=== PATIENT | male | born 1995 | race Hispanic/Latino ===

== ENCOUNTER 2022-09-05 12:59 | Emergency (ER) | payer OTHER ==
[~2022-09-05] VITALS: Ht 172.7 cm; Wt 113.9 kg
[2022-09-05 14:00] LABS: BASOPHILS % (AUTO) 0.4 % (0.0-5.0); EOSINOPHILS % (AUTO) 2.4 % (0.0-8.0); HEMATOCRIT 49.5 % (42-54); LYMPHOCYTES % (AUTO) 35.1 % (21.0-51.0); MEAN CORPUSCULAR HEMOGLOBIN 28.9 pg (27.0-33.0); MEAN CORPUSCULAR HGB CONC 33.7 g/dL (32.0-36.0); MEAN CORPUSCULAR VOLUME 85.6 fL (79-99); MONOCYTES % (AUTO) 6.8 % (3.0-13.0); NEUTROPHILS % (AUTO) 55.2 % (40.0-77.0); PLATELET COUNT (AUTO) 186 K/uL (130-400); RED BLOOD CELL COUNT(AUTO) 5.78 MIL/uL (4.50-6.20); WHITE BLOOD COUNT (AUTO) 7.4 K/uL (4.8-10.8)
[2022-09-05 14:06] LABS: APPEARANCE,URINE CLEAR (CLEAR); BILIRUBIN,URINE NEGATIVE (NEGATIVE); COLOR,URINE YELLOW (YELLOW); GLUCOSE, URINE (UA) NEGATIVE (NEGATIVE); KETONES,URINE NEGATIVE (NEGATIVE); LEUKOCYTE ESTERASE ,URINE NEGATIVE Leu/uL (NEGATIVE); NITRATE,URINE NEGATIVE (NEGATIVE); OCCULT BLOOD,URINE NEGATIVE (NEGATIVE); PH,URINE 5.5 (5.0-8.0); PROTEIN,URINE NEGATIVE (NEGATIVE); UROBILINOGEN,URINE 0.2 mg/dL (0.2-1.0)
[2022-09-05 14:10] LABS: CREATININE 1.3 mg/dL (0.5-1.5); POTASSIUM 4.1 mmol/L (3.5-5.1)
[2022-09-05 14:14] LABS: ALBUMIN 4.6 g/dL (3.5-5.0); TOTAL PROTEIN, SERUM 8.5 g/dL (6.0-8.3)
[2022-09-05 14:16] LABS: RBC,URINE 0-1 /HPF (0-1)
[2022-09-05] MEDS ORDERED: MORPHINE 4 MG SYG IVP ONE (15:30)
[2022-09-05] MEDS ORDERED: 0.9%NACL 1000ML 1,000 ML IV ONE (15:30)
[2022-09-05] MEDS ORDERED: ONDANSETRON 4MG INJ IVP ONE (15:30)
[2022-09-05] MEDS ORDERED: FAMO20TA8 PO (16:51)
[2022-09-05 17:11] VITALS: BP 125/49
== END 2022-09-05 17:19 | disposition home or self-care (01) ==
LOC: EDH 12:59
DX: K29.70 Gastritis, unspecified, without bleeding (principal)
CPT/HCPCS: 99285; 96374; 76705; 96361; 96375; 80053; 83690; 85025; 81001; 36415; J7030; J2405; J2270